=== PATIENT | female | born 1965 | race African-American/Black ===

== ENCOUNTER → 2016-11-24 | Outpatient (CLI) | payer OTHER ==
[~2016-11-24] MED LIST: AMOXIL500 M1 PO; BLOOD PRESSURE PILL; CIPRO PO; PYRIDIUM100 MG PO
== END | disposition home or self-care (01) ==
LOC: CRAD 09:13
DX: I69.228 Other speech and language deficits following other nontraumatic intracranial hemorrhage (principal)
CPT/HCPCS: 74230; 92610

== ENCOUNTER → 2016-12-13 | Outpatient (CLI) | payer OTHER ==
--- NOTE | ~2016-12-13 | CT71 ---
[facility] Service of [facility] RADIOLOGY TEXT RESULTS PATIENT: MICHAEL ELLINGTON LOCATION: [facility] : 69 UNIT #: [id number] AGE: [address]: Prince Ruiz II, MD SEX: F ORDER DR: [id number] [facility] [address] [place], [place] [address] [id number] O MR#: [id number] Acc #: [id number] NAME: MICHAEL ELLINGTON : 1965 SEX: F STUDY DATE/TIME: 12/13/2016 9:07 UNIT: [facility] ROOM: STUDY DESCRIPTION: CT Head Wo Contrast Attending Physician: Prince Ruiz II., M.D. Ordering Physician: Prince Ruiz II., M.D. Primary Care Physician: Regine Rojas M.D. MEDICAL IMAGING REPORT This report is preliminary unless electronic signature is present EXAM Head CT no contrast DATE OF STUDY 12/13/2016 TECHNIQUE Axial unenhanced head CT. This CT exam was performed with one or more of the following radiation dose reduction techniques: automatic exposure control, adjustment of mA and/or kV according to patient size, and iterative reconstruction. CLINICAL HISTORY Confusion and difficulty speaking for 1 day. FINDINGS There are no prior studies for comparison. 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 There is no hemorrhage or hydrocephalus or extra-axial fluid collection, but there are bifrontal areas of encephalomalacia from remote prior insult. There is mild volume loss, but no convincing evidence of any acute intracranial abnormality. 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 The extracranial soft tissues are unremarkable and there are intracranial carotid atherosclerotic vascular calcifications. The skull base and calvarium are unremarkable. IMPRESSION Changes from prior aneurysm coiling as well as areas of encephalomalacia, no acute-appearing abnormality. [facility] of [facility] RADIOLOGY TEXT RESULTS PATIENT: MICHAEL ELLINGTON LOCATION: [facility] : 69 UNIT #: [id number] AGE: [address]: Prince Ruiz II, MD SEX: F ORDER DR: Dictated by... Brian Suarez M.D. THIS IS AN ELECTRONICALLY VERIFIED REPORT Brian Suarez M.D. at 12/16/2016 1:53 PM TEV/aa TD: 12/14/2016 16:09 JOB #: [id number] MEDICAL IMAGING REPORT Page 1 of 1 COPY
--- NOTE | ~2016-12-13 | CT23 ---
[facility] A Service of [facility] & [facility] RADIOLOGY TEXT RESULTS PATIENT: MICHAEL ELLINGTON LOCATION: [facility] : 69 UNIT #: [id number] AGE: [address]: Prince Ruiz II, MD SEX: F ORDER DR: [id number] [facility] [address] [place], [place] [address] [id number] O MR#: [id number] Acc #: [id number] NAME: MICHAEL ELLINGTON : 1965 SEX: F STUDY DATE/TIME: 12/13/2016 9:39 UNIT: [facility] ROOM: STUDY DESCRIPTION: CT Angio Neck Attending Physician: Prince Ruiz II., M.D. Ordering Physician: Prince Ruiz II., M.D. Primary Care Physician: Regine Rojas M.D. MEDICAL IMAGING REPORT This report is preliminary unless electronic signature is present EXAM CT angiogram of the neck HISTORY Stroke symptoms started this morning not otherwise specified. History of hypertension. COMMENT CT angiography of the head and neck vessels performed during the intravenous administration of 100 mL of Isovue-370. There is a separate noncontrast head CT. Study was ordered as a routine CT angiogram of the neck. Therefore there is no CT angiography performed of the intracranial vasculature. This CT exam was performed with one or more of the following radiation dose reduction techniques: automatic exposure control, adjustment of mA and/or kV according to patient size, and iterative reconstruction. FINDINGS CT angiogram Neck: There is mild vascular calcification at the aortic arch. There is bovine origin left common carotid artery. Mild nonspecific heterogeneous enlargement of thyroid gland best assessed further with a followup thyroid ultrasound. There are also postoperative changes to the cervical spine with associated streak artifact. There is also artifact from dental metal. Evaluation of the right carotid system shows partially calcified plaque at the right carotid bifurcation but by NASCET criteria 0% diameter stenosis. The study is technically inadequate to assess the skull base vessels. There is least plaque at the carotid siphons but there is a large amount of artifact related to what are presumably aneurysm coils. Evaluation of the left carotid system shows 0% stenosis at the left carotid bifurcation by NASCET criteria. Mild partially calcified plaque [facility] A Service of [facility] & [facility] RADIOLOGY TEXT RESULTS PATIENT: MICHAEL ELLINGTON LOCATION: [facility] : 69 UNIT #: [id number] AGE: [address]: Prince Ruiz II, MD SEX: F ORDER DR: is present. There is at least vascular calcification of the left carotid siphon, but a large amount of streak artifact is again seen from what are presumably aneurysm coils and this is not an intracranial CT angiogram. I suspect there is at least some stenosis of the bilateral carotid siphons due to plaque. Assessment of the left vertebral artery shows some calcified plaque proximal left vertebral artery in the neck and some mild irregularity of the distal, intracranial portion of left vertebral artery presumably due to some intracranial atherosclerotic disease. On the right side, proximal right vertebral artery is obscured by venous contrast inflow and associated streak artifact. Otherwise the right vertebral artery is patent in the neck and in its intracranial portion. The vertebrals are fairly balanced. Gross patency intracranially of the basilar artery A1 vessels. IMPRESSION 1. By NASCET criteria, 0% stenosis either carotid bifurcation. 2. Both vertebral arteries are patent in the neck. There is some streak artifact related to metal and venous contrast inflow. 3. Please be aware that this is a CT angiogram of the neck only. Intracranial CT angiography was not ordered. Partly seen is what is streak artifact from probable aneurysm coils. Please correlate further with the patient's history. 4. Thyroid gland is mildly enlarged and heterogeneous and this is best pursued with nonemergent thyroid ultrasound. 5. Extensive postoperative changes of the cervical spine with cervical degenerative changes. STAT * RESULT Dictated by... Yadi Gill M.D. THIS IS AN ELECTRONICALLY VERIFIED REPORT Yadi Gill M.D. at 12/14/2016 2:24 PM SAC/to TD: 12/13/2016 17:39 JOB #: [id number] MEDICAL IMAGING REPORT Page 1 of 1 COPY
[2016-12-13 12:29] LABS: POC - CREATININE 0.91 mg/dL (0.44-1.03); POC - GFR >60.0 mL/min (>60)
== END | disposition home or self-care (01) ==
LOC: CCAT 08:52
PROVIDERS: Psychiatry & Neurology Neurology
DX: I63.9 Cerebral infarction, unspecified (principal); E04.9 Nontoxic goiter, unspecified; M47.812 Spondylosis without myelopathy or radiculopathy, cervical region; G93.89 Other specified disorders of brain; Z98.890 Other specified postprocedural states
CPT/HCPCS: 70450; 70498; 82565; Q9967